=== PATIENT | male | born 2000 | race African-American/Black ===

== ENCOUNTER 2021-11-15 13:03 | Emergency (ER) | payer MEDICAID, SELFPAY ==
[2021-11-15 13:06] VITALS: BP 122/83; PULSE 93; RESP 20; TEMP 36.8; O2SAT 98; BMI 17.9
[2021-11-15 13:20] VITALS: BP 122/83; PULSE 93; RESP 20; TEMP 36.8; O2SAT 98; BMI 17.3
--- NOTE | 2021-11-15 13:52 | HMH.EDUTC ---
[facility] [place] Clinical Impression: URI (upper respiratory infection) Qualifiers: URI type: unspecified URI Qualified Code(s): J06.9 - Acute upper respiratory infection, unspecified Disposition: Home, Self-Care Condition on Discharge: Good Instructions: Sore Throat, DI for Sinusitis, DI for COVID-19 (Suspected or Confirmed ) Additional Instructions: *Monitor Temp, Over the counter Motrin or Tylenol as directed/as needed Tylenol every 4 hours and Motrin every 6 hours (as long as your family doctor has told you that you can take it) for fever or pain. and straight to ER if unable to lower temp less than 101.0 after medication given *Warm salt water gargles may help to soothe the throat *Throat Lozenges *Warm fluids like tea with honey may help to soothe the throat *Sleep elevated *Humidifier/Vaporizer *Bromfed may cause drowsiness. Know how it effects you (your child) before driving, caring for small child, or sending your child to school. Not other antihistamines/allergy medications while taking bromfed Follow up IMMEDIATELY for new or worsening symptoms or no Noticeable improvement over the next 48-72 hours. 911 for difficulty breathing or swallowing You were tested for today for COVID19 your test result should be back in the next 24-48 hours, you may checked for results on the [facility] My Health Portal if you have trouble seeing your results you may call support If you are positive someone from the hospital will be calling you Make sure to take your Vitamins Vit. C Vit D and Zinc if you can take them Prescriptions: Brompheniramine/Pseudoephed/Dm [Bromfed Dm Cough Syrup] 5 - 10 ml PO Q46H PRN #150 ml PRN Reason: Cough Transmission Status: Pending to [facility] # methylPREDNISolone [Medrol 4mg tab] 4 mg PO DIRECTED #21 tab Transmission Status: Pending to [facility] # Azithromycin [Z-George 250mg Tab] 250 mg PO DIRECTED #6 tab Transmission Status: Pending to [facility] # Referrals: Provider,Referral, MD [Primary Care Provider] - As needed Forms: Work/School Release Time of Disposition: 14:04 Medical Decision Making - Josue Inquiry Pt receiving controlled substance: No Josue was queried for this patient: No Vital Signs: 11/15/21 13:06 11/15/21 13:20 Temperature 98.3 F 98.3 F Temperature Source Oral Oral Pulse Rate [Radial] 93 H 93 H Respiratory Rate 20 20 Blood Pressure [Right Arm] 122/83 122/83 Blood Pressure Mean [Right Arm] 96 96 Blood Pressure Source [Right Arm] Automatic Cuff Blood Pressure Position [Right Arm] Sitting Sitting 02 Sat by Pulse Oximetry 98 98 Oxygen Delivery Method Room Air Room Air Orders (Tests/Meds): ORDERS Category Date Time Status Covid-19 Nasal PCR ([facility]) Routine Lab 11/15/21 13:30 Received [facility] [place] HPI - General Stated complaint: sinus, congestion, ROBERTS Time Seen by Provider: 11/15/21 13:52 Mode of Arrival: Ambulatory Source of Information: Patient Limitations: No Limitations Description of Symptoms (Recalled from Triage Doc. by RN): PATIENT C/O HEADACHE AND CHEST CONGESTION. WANTS TO RULE OUT BRONCHITIS AND COVID SO HE CAN RETURN TO WORK HEENT Symptoms (Recalled from RN notes): Yes Resp Symptoms (Recalled from RN notes): No Skin Symptoms (Recalled from RN notes): No MS Symptoms (Recalled from RN notes): No Functional Status (Recalled from RN notes): WNL - History of Present Illness Provider Complaint: Patient states that he has been having sinus pain and pressure along with cough, headache and feeling like the congestion is trying to move into his chest States that he has been around someone with COVID and with Bronchitis so his work wanted him to come in and get checked out - Related Data Previous Rx's Medication Instructions Recorded Azithromycin [Z-George 250mg Tab] 250 mg PO DIRECTED #6 tab 11/15/21 Brompheniramine/Pseudoephed/Dm 5 - 10 ml PO Q46H PRN #150 ml 11/15/21 [Bromfed Dm Cough Syru
[2021-11-15 14:11] VITALS: BP 122/83; PULSE 93; RESP 20; TEMP 36.8; O2SAT 98
== END 2021-11-15 14:15 | disposition home or self-care (01) ==
PROVIDERS: Emergency Provider Nurse Practitioner
DX: J06.9 Acute upper respiratory infection, unspecified (principal); Z20.822 Contact with and (suspected) exposure to COVID-19
CPT/HCPCS: 99202; 99212; 99213; C9803; G0463; U0003; U0005